=== PATIENT | male | born 1985 | race Caucasian/White ===

== ENCOUNTER 2021-03-14 21:23 | Emergency (ER) | payer OTHER ==
[~2021-03-14] VITALS: Ht 175.3 cm; Wt 68.0 kg
[2021-03-14] MEDS ORDERED: HYDROCODON-ACE1 EAC8 PO ×3 (23:00→23:13)
[2021-03-14 23:40] VITALS: BP 125/96
== END 2021-03-14 23:51 | disposition home or self-care (01) ==
LOC: M.ERS 21:23
DX: S42.002A Fracture of unspecified part of left clavicle, initial encounter for closed fracture (principal); W18.39XA Other fall on same level, initial encounter; Y93.51 Activity, roller skating (inline) and skateboarding; Y92.89 Other specified places as the place of occurrence of the external cause; Y99.8 Other external cause status